=== PATIENT | female | born 1970 | race Caucasian/White ===

== ENCOUNTER → 2023-08-09 15:49 | Outpatient (REF) | payer OTHER, SELFPAY | LOC: RAD 15:49 | PROVIDERS: ATTENDING PHYSICIAN Surgery; FAMILY PHYSICIAN Internal Medicine | DX: N20.0 Calculus of kidney (principal) | CPT/HCPCS: 74176 ==

== ENCOUNTER → 2023-08-30 13:59 | Outpatient (REF) | payer OTHER, SELFPAY | LOC: RAD 13:59 | PROVIDERS: ATTENDING PHYSICIAN Internal Medicine | DX: J18.9 Pneumonia, unspecified organism (principal) | CPT/HCPCS: 71046 ==

== ENCOUNTER 2023-10-11 19:05 | Observation (INO) | payer OTHER, SELFPAY ==
[2023-09-27 08:10] VITALS: BMI 32.0
[2023-09-27 09:12] LABS: Urine Albumin Negative (Neg - Trace); Urine Bilirubin Negative (Negative); Urine Character Clear (Clear); Urine Color Yellow; Urine Glucose Negative (Negative); Urine Ketone Negative (Negative); Urine Leukocyte Trace (Negative); Urine Nitrite Negative (Negative); Urine Occult Blood Negative (Negative); Urine Urobilinogen Negative (Neg - 1+)
[2023-09-27 09:18] LABS: Hematocrit 37.8 % (37.0-47.0); Hemoglobin 12.5 g/dL (12.0-16.0); Mean Corp Hgb Conc. 33.1 g/dL (33.0-37.0); Mean Corpuscular Hgb 28.9 pg (27.0-31.0); Mean Corpuscular Volume 87.5 fL (81.0-99.0); Platelet Count 181 10^3/uL (130-400); Red Blood Cell Count 4.32 10^6/uL (4.20-5.40); Red Cell Dist. Width 14.4 % (11.5-14.5); White Blood Cell Count 5.2 10^3/uL (4.8-10.8)
[2023-09-27 09:29] LABS: Urine Mucus Few; Urine Squamous Cell >30 /LPF (Few)
[2023-09-27 09:30] LABS: Urine Red Blood Cell 0-2 /HPF (0-2)
[2023-09-27 09:31] LABS: Urine Bacteria Few (Negative)
[2023-09-27 09:37] LABS: Blood Urea Nitrogen 20 mg/dl (7-17); Calcium 9.4 mg/dl (8.4-10.2); Carbon Dioxide 22 mmol/L (22-30); Chloride 108 mmol/L (98-107); Estimated Creatinine Clearance 82 ml/min; Glucose 93 mg/dl (70-99); Potassium 4.4 mmol/L (3.5-5.1); Sodium 138 mmol/L (135-145); eGFR > 60.00
[2023-09-27 09:41] LABS: INR 1.03; PT 13.3 Sec (11.4-14.6)
[2023-10-11] VITALS (21 sets, daily range): BP systolic 94–144; BP diastolic 42–88; PULSE 80; BMI 32.0; BMI 31.1
[2023-10-11] MEDS: NORMOSOL-R 1000 IV (13:48)
[2023-10-11] MEDS: Pyridium 200 MG PO (16:07)
[2023-10-11] MEDS: DETROL LA 4 MG PO (16:07)
--- NOTE | 2023-10-11 17:51 | CON.CAR ---
Addendum entered and electronically signed by Scout Ortiz MD 10/11/23 18:53:
I saw and examined the patient.
The CHARGE HISTOTECHNOLOGIST's note was reviewed and I agree with the note.
53-year-old woman with a history of PSVT, hypertension and asthma who had a renal stone and underwent ureteroscopy with lithotripsy and stent. Consult for abnormal ECG. ST and T wave appeared abnormal on telemetry prompting the ECG which showed
anterior T wave inversions. Patient has some baseline nonspecific T wave abnormality however the most recent ECG has more pronounced T wave inversions. Patient currently is comfortable with no complaints of chest discomfort or shortness of breath.
No prior history of coronary artery disease and she has been asymptomatic at home and able to do usual physical activities without symptoms. Exact cause for ECG abnormalities unclear. Possibility of coronary ischemia is a consideration. Based on
the above I have recommended additional observation I reviewed this with both the patient, her mother, Dr. Taylor and anesthesia
-Monitor on telemetry
-Serial troponins
-Follow-up ECG in a.m.
Original Note:
Consultation
Consultation Request
Date/Time Consultation Requested: 10/11/231730
Date/Time Consultation Performed: 10/11/231739
Requesting Provider: Dr. Zhang
Performing Provider: Hina RODRIGUES for Dr. Ortiz
Reason for Consultation: abnormal EKG
Medical History
-
Chief Complaint: urologic procedure
History of Present Illness:
53 y/o female with YULI on CPAP, SVT on BB, HTN on ACEI, and asthma who recently diagnosed with renal stone and is s/p ureteroscopy with lithotripsy and stent. Tele showed so ST/T changes and so EKG was done and showed anterolateral t-wave inversions
. She feels 'perfect' and denies any CP or SOB. She walks for exercise and has no difficulty doing so.
Past Medical History
Past Medical History: Arrhythmias (SVT), Asthma, HTN and Other (YULI on CPAP)
Social History
Tobacco: Non-Smoker
Family History
Family History: Other (dad had stroke)
Allergies / Home Medications
Allergy/AdvReac Type Severity Reaction Status Date / Time
ketorolac tromethamine Allergy Anaphylaxis Verified 10/11/23 15:34
[From Toradol]
�Medication �Instructions �Recorded �Confirmed �Type
sertraline 100 mg tablet 200 mg PO HS 06/01/12 10/04/23 History
montelukast 10 mg tablet 10 mg PO HS 07/14/15 10/04/23 History
albuterol sulfate 90 mcg/actuation 1 puff inhalation PRN PRN WHEEZE 12/01/20 10/11/23 History
aerosol inhaler (Proventil HFA)
alendronate 70 mg tablet 70 mg PO HITCHCOCK 12/01/20 10/11/23 History
fluticasone propionate 115 1 puff inhalation BID 12/01/20 10/11/23 History
mcg-salmeterol 21 mcg/actuation
HFA inhaler (Advair HFA)
metoprolol succinate 25 mg 25 mg PO HS 12/01/20 10/04/23 History
tablet,extended release 24 hr
omeprazole 40 mg capsule,delayed 40 mg PO DAILY 12/01/20 10/11/23 History
release
acetaminophen 650 mg 650 mg PO Q8HPRN PRN pain 12/13/21 10/11/23 History
tablet,extended release (Tylenol
Arthritis Pain)
fexofenadine 30 mg tablet (Marita) 30 mg PO DAILY 12/13/21 10/11/23 History
gabapentin 300 mg capsule 600 mg PO HS 12/13/21 10/04/23 History
dynnqkjz-ybu-hahh 18 mg-FA 400 1 tab PO DAILY 12/13/21 10/11/23 History
mcg-calcium 500 mg-vit K 50 mcg
tablet (Women's Multivitamin)
gabapentin 300 mg capsule 300 mg PO DAILY 10/04/23 10/11/23 History
ibuprofen 600 mg tablet 600 mg PO Q6H 10/04/23 10/11/23 History
lisinopril 2.5 mg tablet 2.5 mg PO HS 10/04/23 10/04/23 History
Review of Systems
-
History Source: Patient
All other systems: Negative unless noted (no CP or SOB, feels well no symptoms)
Physical Exam
Vital Signs
Temp Pulse Resp BP Pulse Ox
97.6 F 90 20 130/77 96
10/11/23 15:26 10/11/23 17:45 10/11/23 17:45 10/11/23 17:45 10/11/23 17:45
Lab Results
09/27/23 08:07
09/27/23 08:07
Physical Exam
General: Well Developed, Well Nourished and No Apparent Distress
HEENT: Normocephalic and Anicteric
Respiratory: Clear and Non Labored Respirations
Cardiac: Regular Rhythm
GI: Soft, Non Distended and Normal Bowel Sounds
Musculoskeletal: No Edema
Skin: Warm and Dry
Neuro: AO x 3
Psych: Calm
Impression / Plan
-
Abnormal EKG:
-T-wave inversions anterolaterally
-denies any CP or SOB
-check trops
-follow telemetry
HTN:
-stable
-continue monitor
Sleep apnea:
-continue CPAP
SVT:
-on BB
-follow telemetry
Asthma:
-stable without SOB or wheezing
Renal stone s/p cystoscopy, lithotripsy, stent:
-per urology
Data Reviewed
-
EKG: Tracing Personally Visualized and interpreted (SR with T wave inversions anterolaterally)
Medical Tests (Nuc Med, Echo etc): Report Reviewed by me (echo 02/16/14: Mild concentric LVH with preserved systolic function, EF 55-60% 2. Mild-moderate tricuspid regurgitation with mild pulmonary hypertension, 40 mmHg)
Labs: Labs Reviewed by me
--- NOTE | 2023-10-11 18:49 | HPS.HSE ---
Family Physician
-
Family Physician: Yu Quinteros
Chief Complaint
-
abnormal telemtry
History of Present Illness
53-year-old female past medical history of obstructive sleep apnea, asthma, SVT, hypertension, renal stones who was diagnosed with renal stones and underwent uteroscopy with lithotripsy and stent today. Afterwards telemetry showed T wave inversions
in lateral leads so cardiology was consulted who recommended observation overnight. She states that she feels fine and denies any chest pain, shortness of breath or palpitations or dizziness. Her heart rate has been normal recently.
She denies smoking alcohol use.
Mother had heart disease. Her father had stroke.
Medical History
Past Medical History
Past Medical History: Reports Other (obstructive sleep apnea, asthma, SVT, hypertension, renal stones )
Past Surgical History: Reports None
Social History
Tobacco: Non-smoker
Alcohol: None
Drug: None
Family History
Family History: Not pertinent
Allergies / Home Medications
Allergies reflects when Allergies were last updated in [facility].
Home Medications with original date entered in [facility]
Allergy/Medication List:
Allergies
Allergy/AdvReac Type Severity Reaction Status Date / Time
ketorolac tromethamine Allergy Anaphylaxis Verified 10/11/23 15:34
[From Toradol]
Home Medications
sertraline 100 mg tablet 200 mg PO HS 06/01/12
montelukast 10 mg tablet 10 mg PO HS 07/14/15
albuterol sulfate 90 mcg/actuation aerosol inhaler (Proventil HFA) 1 puff inhalation PRN PRN WHEEZE 12/01/20
alendronate 70 mg tablet 70 mg PO HITCHCOCK 12/01/20
fluticasone propionate 115 mcg-salmeterol 21 mcg/actuation HFA inhaler (Advair HFA) 1 puff inhalation BID 12/01/20
metoprolol succinate 25 mg tablet,extended release 24 hr 25 mg PO HS 12/01/20
omeprazole 40 mg capsule,delayed release 40 mg PO DAILY 12/01/20
acetaminophen 650 mg tablet,extended release (Tylenol Arthritis Pain) 650 mg PO Q8HPRN PRN pain 12/13/21
fexofenadine 30 mg tablet (Marita) 30 mg PO DAILY 12/13/21
gabapentin 300 mg capsule 600 mg PO HS 12/13/21
qdqkxcak-efv-tmhe 18 mg-FA 400 mcg-calcium 500 mg-vit K 50 mcg tablet (Women's Multivitamin) 1 tab PO DAILY 12/13/21
gabapentin 300 mg capsule 300 mg PO DAILY 10/04/23
ibuprofen 600 mg tablet 600 mg PO Q6H 10/04/23
lisinopril 2.5 mg tablet 2.5 mg PO HS 10/04/23
Review of Systems
-
History Source: Patient
A 12 point ROS was completed and negative except as noted: Yes
Constitutional: Reports No Symptoms
EENT: Reports No Symptoms
Respiratory: Reports No Symptoms
Cardiac: Reports No Symptoms
Abdomen/GI: Reports No Symptoms
: Reports No Symptoms
Musculoskeletal: Reports No Symptoms
Skin: Reports No Symptoms
Neurological: Reports No Symptoms
Endocrine: Reports No Symptoms
Hematologic/Lymphatic: Reports No Symptoms
Psych: Reports No Symptoms
Physical Exam
Vital Signs
Vital Signs
Temp Pulse Resp BP Pulse Ox
98.8 F 100 18 134/69 95
10/11/23 18:30 10/11/23 18:45 10/11/23 18:45 10/11/23 18:30 10/11/23 18:45
Physical Exam
General: Well Developed, Well Nourished and No Apparent Distress
HEENT: NormoCephalic, Moist mucous membranes and Atraumatic
Respiratory: Clear
Cardiac: S1/S2 and Regular Rhythm; No Murmur or Rub
GI: Soft, Non Tender, Non Distended and Normal Bowel Sounds; No Organomegaly
Rectal: Deferred by Provider
Musculoskeletal: No Clubbing, No Cyanosis and No Edema
Skin: No Rash
Neuro: Nonfocal/grossly intact
Laboratory Results
-
09/27/23 08:07
09/27/23 08:07
Laboratory Results
PT 13.3 Sec (11.4-14.6) 09/27/23 08:07
INR 1.03 09/27/23 08:07
APTT 32.0 Sec (23.4-35.0) 09/27/23 08:07
Data Reviewed
-
Lab Data: Labs Reviewed by me
Old Records: Reviewed
Impression/Plan
-
IMPRESSION:
PLAN:
# Anterolateral T wave inversions
-Likely due to anesthesia/transient low blood pressure
-Observation overnight to rule out ischemia
-Check EKG in the morning
-Trend troponins
-Cardiology following
-Likely for discharge tomorrow
Renal stones status post uteroscopy with lithotripsy/stone extraction and stent placement today
History of SVT
-Continue metoprolol
Obstructive sleep apnea
Asthma
-Continue inhaler
-Continue montelukast
Essential hypertension
-Continue lisinopril
Spinal stenosis
-Continue ibuprofen, gabapentin
Osteoporosis
-Continue alendronate
Anxiety/depression
-Continue sertraline
Full code
DVT prophylaxis�heparin
Regular diet
[2023-10-11 19:17] LABS: Troponin I < 0.012 ng/ml
--- NOTE | 2023-10-11 19:50 | PTCARENOTE ---
Pt arrived to unit at this time form PACU, AAOx3 able to make needs known, VSS, denies pain able to transfer from stretcher to bed with standby assist. Pt oriented to room and [facility] policies call [facility]antes within reach. Pt reports she wears a CPAP @
[facility] will reach out to [facility] to have RT attain CPAP.
[2023-10-11] MEDS: ADVAIR HFA 115/21 MCG INHALER 1 PUFF INH (20:39)
[2023-10-11] MEDS: HEPARIN 5000 UNITS SC (21:16)
[2023-10-11] MEDS: ZOLOFT 200 MG PO (21:17)
[2023-10-11] MEDS: ZESTRIL 2.5 MG PO (21:17)
[2023-10-11] MEDS: NEURONTIN 600 MG PO (21:17)
[2023-10-11] MEDS: TOPROL XL 25 MG PO (21:18)
[2023-10-11] MEDS: SINGULAIR 10 MG PO (21:22)
[2023-10-12] MEDS: MOTRIN 600 MG PO ×3 (00:11→12:59)
[2023-10-12 00:34] LABS: Albumin 4.6 g/dl (3.5-5.0); Blood Urea Nitrogen 18 mg/dl (7-17); Calcium 9.4 mg/dl (8.4-10.2); Carbon Dioxide 21 mmol/L (22-30); Chloride 105 mmol/L (98-107); Estimated Creatinine Clearance 94 ml/min; Glucose 195 mg/dl (70-99); Magnesium 2.2 mg/dl (1.6-2.3); Phosphorus 3.1 mg/dl (2.5-4.5); Potassium 4.8 mmol/L (3.5-5.1); Sodium 137 mmol/L (135-145); eGFR > 60.00
[2023-10-12 00:45] LABS: Troponin I < 0.012 ng/ml
[2023-10-12] MEDS: ROXICODONE 5 MG PO (01:11)
--- NOTE | 2023-10-12 01:16 | PTCARENOTE ---
Pt reported that she was to be on a oral ABX after SDSand it was sent to her RX, reached out to quality control technician team for urology and reported they will address plan in the morning. Pt made aware.
[2023-10-12 03:15] VITALS: BP 111/51
[2023-10-12 06:05] LABS: % Basophils 0.3 % (0-2); % Immature Granulocytes 0.5 % (0-0.5); % Lymphocytes 6.5 % (20.5-51.1); % Monocytes 7.9 % (1.7-9.3); % Neutrophils 84.8 % (42.2-75.2); Absolute Immature Granulocytes 0.1 10^3/uL (0-0.05); Absolute Lymphocytes 0.9 10^3/uL (1.2-3.4); Absolute Monocytes 1.1 10^3/uL (0.1-0.6); Absolute Neutrophils 11.5 10^3/uL (1.4-6.5); Hematocrit 34.7 % (37.0-47.0); Hemoglobin 11.9 g/dL (12.0-16.0); Mean Corp Hgb Conc. 34.3 g/dL (33.0-37.0); Mean Corpuscular Hgb 29.1 pg (27.0-31.0); Mean Corpuscular Volume 84.8 fL (81.0-99.0); Mean Platelet Volume 8.7 fL (7.4-10.4); Nucleated Red Blood Cells % 0 %; Platelet Count 194 10^3/uL (130-400); Red Blood Cell Count 4.09 10^6/uL (4.20-5.40); White Blood Cell Count 13.6 10^3/uL (4.8-10.8)
[2023-10-12 06:28] LABS: Troponin I < 0.012 ng/ml
[2023-10-12 06:31] LABS: ALT (SGPT) 25 U/L (0-35); AST (SGOT) 26 U/L (14-36); Albumin 4.2 g/dl (3.5-5.0); Alkaline Phosphatase 56 U/L (38-126); Blood Urea Nitrogen 20 mg/dl (7-17); Calcium 9.1 mg/dl (8.4-10.2); Carbon Dioxide 22 mmol/L (22-30); Chloride 106 mmol/L (98-107); Estimated Creatinine Clearance 82 ml/min; Glucose 133 mg/dl (70-99); Potassium 4.3 mmol/L (3.5-5.1); Sodium 138 mmol/L (135-145); Total Bilirubin 0.7 mg/dl (0.2-1.3); Total Protein 6.8 g/dl (6.3-8.2); eGFR > 60.00
--- NOTE | 2023-10-12 07:01 | W.PN.HOSP.TC ---
Today's Communication/Plan
-
discharge
Assessment / Plan
Assessment / Plan
Physical Exam
General: Well Developed, Well Nourished and No Apparent Distress
HEENT: NormoCephalic, Moist mucous membranes and Atraumatic
Respiratory: Clear
Cardiac: S1/S2 and Regular Rhythm; No Murmur or Rub
GI: Soft, Non Tender, Non Distended and Normal Bowel Sounds; No Organomegaly
Musculoskeletal: No Clubbing, No Cyanosis and No Edema
Skin: No Rash
Neuro: Nonfocal/grossly intact
53F YULI Asthma SVT HTN renal stones uteroscopy w lithotripsy stent placed on observation overnight post-procedure d/t concern T wave inversions noted on telemonitor
# Anterolateral T wave inversions
-Likely due to anesthesia/transient low blood pressure
-EKG in AM noted NSR no significant change from prior EKG
-Troponin neg x3
-ECHO appreciated preserved EF 60-65%
-Cardiology eval appreciated outpt follow up for stress test recommended, cleared for discharge
Renal stones status post uteroscopy with lithotripsy/stone extraction and stent placement 10/10
urology eval appreciated, outpatient follow up recommended.
History of SVT
-Continue metoprolol
Obstructive sleep apnea
Asthma
-Continue inhaler
-Continue montelukast
Essential hypertension
-Continue lisinopril
Spinal stenosis
-Continue ibuprofen, gabapentin
Osteoporosis
-Continue alendronate
Anxiety/depression
-Continue sertraline
Full code
DVT prophylaxis�heparin
Regular diet
Total Time Preparing Discharge __45 minutes including examination of the patient, summary of the hospital stay, instructions for continuing care to all relevant caregivers; and preparation of discharge records, prescriptions, and referral
forms if necessary.
Anticipated Discharge: Today
Subjective/Interval History
-
Date of Service: October 12, 2023
Reports feeling well. No new acute issues. Eager to go home
Objective Data
-
Labs:
Laboratory Results
10/12/23 10/12/23
00:05 05:55
WBC 13.6 H
Hgb 11.9 L
Hct 34.7 L
Plt Count 194
Sodium 137 138
Potassium 4.8 4.3
Chloride 105 106
Carbon Dioxide 21 L 22
BUN 18 H 20 H
Creatinine 0.7 0.8
Glucose 195 H 133 H
Calcium 9.4 9.1
Total Bilirubin 0.7
AST 26
ALT 25
Alkaline Phosphatase 56
Vital Signs:
Vital Signs
Temp Pulse Resp BP Pulse Ox
99 F 87 18 111/51 95
10/12/23 03:15 10/12/23 03:15 10/12/23 03:15 10/12/23 03:15 10/12/23 03:15
I&O
10/11/23 10/12/23 10/13/23
06:59 06:59 06:59
Intake Total 1520 / 1520
Balance 1520 / 1520
[2023-10-12 07:20] VITALS: BP 105/79
--- NOTE | 2023-10-12 08:14 | W.PN.URO.CBU ---
Today's Communication / Plan
-
discharge when cleared by cardiology
Assessment / Plan
-
s/p ureteroscopy
admitted for post op ekg changes
pt feels good
cleared from gu standpoint for discharge
gu meds already sent to pharmacy
pt to contact office after discharge for plan
Diagnosis
-
Date of Service: October 12, 2023
-
Patient Diagnosis:
stone
post op ekg change
Post Op Day:
1 right ureteroscopy
Subjective
-
pt feels good- no Cp or sig stent discomfort
no fevers
slight elevation of wbc- likely reactionary from surgery
Objective
-
Vital Signs
Temp Pulse Resp BP Pulse Ox
99 F 87 18 111/51 95
10/12/23 03:15 10/12/23 03:15 10/12/23 03:15 10/12/23 03:15 10/12/23 03:15
Intake and Output
10/11/23 10/12/23 10/13/23
06:59 06:59 06:59
Intake Total 1520 / 1520
Balance 1520 / 1520
Intake:
Oral fluids 920 / 920
IV fluids (Total) 600 / 600
Normosol 600 / 600
Other:
Number of approximated MODERATE 3
amounts of urine
Laboratory Results
10/12/23 05:55
10/12/23 05:55
Review of Systems
-
Constitutional: No Symptoms
Respiratory: No Symptoms
Cardiac: No Symptoms
Abdomen/GI: No Symptoms
Physical Exam
-
General - no acute distress
[2023-10-12] MEDS: ADVAIR HFA 115/21 MCG INHALER 1 PUFF INH (08:56)
[2023-10-12] MEDS: HEPARIN 5000 UNITS SC (08:56)
[2023-10-12] MEDS: THERAGRAN 1 TABLET PO (08:57)
[2023-10-12] MEDS: PROTONIX 40 MG PO (08:57)
[2023-10-12] MEDS: CLARITIN 10 MG PO (08:57)
[2023-10-12] MEDS: NEURONTIN 300 MG PO (09:06)
[2023-10-12] MEDS: KEFLEX 500 MG PO (09:08)
--- NOTE | 2023-10-12 10:31 | W.PN.CD ---
Today's Communication / Plan
-
stable overnight
negative toponins and normal LVF by echo'
no evidence changes are due to ischmeia
will follow up as outpatietn and will arrange outpateitn stress test after additional recovery
ok for discharge from cardiology standpoint.
Impression / Plan
-
Abnormal EKG:
-T-wave inversions anterolaterally
-denies any CP or SOB
-Nonspecific changes.
- negative troponins. No evidence ECG related to ischemi
echo with normal lVF
Mildly elevated trnnsaortic gradient without clear aortic stenosis. Increased gradient may be impacted by mild LVOT and intracavitary gradient
HTN:
-stable
-continue monitor
Sleep apnea:
-continue CPAP
SVT:
-on BB
-follow telemetry
Asthma:
-stable without SOB or wheezing
Renal stone s/p cystoscopy, lithotripsy, stent:
-per urology
Physical Exam
Vital Signs/Labs
Vital Signs
Temp Pulse Resp BP Pulse Ox
99.0 F 78 16 105/79 96
10/12/23 07:20 10/12/23 08:58 10/12/23 08:58 10/12/23 07:20 10/12/23 08:58
10/11/23 10/12/23 10/13/23
06:59 06:59 06:59
Actual Weight 82.1 kg
10/12/23 05:55
10/12/23 05:55
PT 13.3 Sec (11.4-14.6) 09/27/23 08:07
INR 1.03 09/27/23 08:07
APTT 32.0 Sec (23.4-35.0) 09/27/23 08:07
Magnesium 2.2 mg/dl (1.6-2.3) 10/12/23 00:05
LAB Results
10/11/23 10/12/23 10/12/23
18:35 00:05 05:55
Troponin I < 0.012 < 0.012 < 0.012
Physical Exam
Constitutional: No acute distress
Cardiovascular: Rhythm & rate is regular and Other (faint systlic murmur)
Respiratory: Respiratory effort normal
GI: Soft
Neuro/Psych: Alert
Data Reviewed
-
Date of Service: October 12, 2023
Medical Decision Making: Reviewed Test Results
Echo: Tracing Personally Visualized and interpreted and Report Reviewed by me
X-Ray/CT/US/MRI/NUC/PET: Report Reviewed by me
Medical Tests (PFT, Pathology etc): Report Reviewed by me
Labs: Labs Reviewed by me
[2023-10-12 11:50] VITALS: BP 97/57
--- NOTE | 2023-10-12 12:41 | W.DCSUMMARY ---
Discharge Summary
Discharge Data
Date of Admission: 10/11/23
Date of Discharge: 10/12/23
-
Pending Results: No
Hospital Course
53F YULI Asthma SVT HTN renal stones uteroscopy w lithotripsy stent placed on observation overnight post-procedure d/t concern T wave inversions noted on telemonitor. Anterolateral T wave inversions, likely due to anesthesia/transient low blood
pressure, EKG in AM noted NSR no significant change from prior EKG. Troponin neg x3. ECHO appreciated preserved EF 60-65%. Cardiology evaluated and outpt follow up for stress test recommended, cleared for discharge. Renal stones status post
uteroscopy with lithotripsy/stone extraction and stent placement 10/10. Urology evaluated and recommended outpatient follow up. Medically stable, patient was discharged home with outpatient follow up recommendations.
Discharge Plan
-
Patient Disposition: Home (Routine Discharge)
Discharge Diagnosis/Procedures: you had a right ureteroscopy and laser lithotripsy, abnormal EKG
Condition: Good
Diet: No restrictions
Activity: No restrictions
Driving Restrictions: As prior to admission
Bathing Restrictions: OK to Shower
Wound Care: expect blood in urine, urinary urgency and frequency and some pain with urination
Referrals:
Yu Quinteros PA-C [Family Provider] - in one week
Elías Taylor MD [Active] - (call dr taylor's office to schedule follow up/stent removal)
Hina Karimi CRNP [Specified Professional Personl] - 10/25/23 10:40 am
Additional Discharge Medication Instructions: take the pyridium and cephalexin as prescribed by dr taylor- these have been called into your pharmacy
Prescriptions:
Continued
sertraline 100 MG tablet
200 mg PO HS
montelukast 10 MG tablet
10 mg PO HS
alendronate 70 MG tablet
70 mg PO HITCHCOCK
omeprazole 40 MG capsule,delayed release(/EC)
40 mg PO DAILY
metoprolol succinate 25 MG tablet extended release 24 hr
25 mg PO HS
albuterol sulfate [Proventil HFA] 90 MCG/PUFF HFA aerosol inhaler
1 puff inhalation PRN PRN (Reason: WHEEZE)
fluticasone propion-salmeterol [Advair HFA] 1 PUFF HFA aerosol inhaler
1 puff inhalation BID
acetaminophen [Tylenol Arthritis Pain] 650 MG tablet extended release
650 mg PO Q8HPRN PRN (Reason: pain)
Marita 30 MG tablet
30 mg PO DAILY
Women's Multivitamin 1 EACH tablet
1 tab PO DAILY
gabapentin 300 MG capsule
600 mg PO HS
ibuprofen 600 mg Tablet
600 mg PO Q6H
gabapentin 300 mg Capsule
300 mg PO DAILY
lisinopril 2.5 mg Tablet
2.5 mg PO HS
Discharge Orders:
Discharge Patient (As Directed); Ordered 10/12/23
Ordered By: Vero Adorno
Discharge Date and Time
Discharge Date/Time: 10/12/23 13:13
Print Language: [place]
--- NOTE | 2023-10-12 15:20 | CM ---
Pt left prior to CM speaking with her.
Staff said family picked her up .
Hx of sleep apnea Has CPAP at home and cervical collar.
Observation letter unable to be given
PLAN Home no needs
== END 2023-10-12 13:13 | disposition home or self-care (01) ==
LOC: 2 SOUTH 19:05
PROVIDERS: Nurse Practitioner; Surgery; ADMITTING PHYSICIAN Hospitalist; ATTENDING PHYSICIAN Internal Medicine; FAMILY PHYSICIAN Physician Assistant; OTHER PHYSICIAN Internal Medicine Cardiovascular Disease
DX: N20.0 Calculus of kidney (principal); I10 Essential (primary) hypertension; I47.10 Supraventricular tachycardia, unspecified; J45.909 Unspecified asthma, uncomplicated; F41.9 Anxiety disorder, unspecified; F32.A Depression, unspecified; M81.0 Age-related osteoporosis without current pathological fracture; G47.33 Obstructive sleep apnea (adult) (pediatric); I07.1 Rheumatic tricuspid insufficiency; I27.20 Pulmonary hypertension, unspecified; Z82.3 Family history of stroke; Z87.442 Personal history of urinary calculi; Z82.49 Family history of ischemic heart disease and other diseases of the circulatory system; Z88.8 Allergy status to other drugs, medicaments and biological substances; Z79.51 Long term (current) use of inhaled steroids; Z86.79 Personal history of other diseases of the circulatory system
CPT/HCPCS: 52356; 36415; 74018; 76000; 80048; 80053; 80069; 81003; 81015; 83735; 84484; 85025; 85027; 85610; 85730; 87070; 93005; 93306; 94640; 94660; C1769; C1894; C2617; G0378

== ENCOUNTER → 2023-11-05 11:12 | Outpatient (REF) | payer OTHER, SELFPAY | LOC: DHCBC/DCA 11:12 | PROVIDERS: ATTENDING PHYSICIAN Nurse Practitioner; FAMILY PHYSICIAN Physician Assistant | DX: R94.31 Abnormal electrocardiogram [ECG] [EKG] (principal) | CPT/HCPCS: 78452; 93017; A9500; J2785 ==

== ENCOUNTER 2023-12-20 06:08 | Day surgery (SDC) | payer OTHER, SELFPAY ==
--- NOTE | 2023-12-16 16:36 | PTCARENOTE ---
Abnormal ECG reported to Dr. Zhang, no further actions requested at this time.
[2023-12-20] VITALS (10 sets, daily range): BP systolic 88–136; BP diastolic 46–88; BMI 30.3
[2023-12-20] MEDS: TYLENOL 1000 MG PO (14:34)
[2023-12-20] MEDS: VALIUM INJECTION 2 MG IV (16:39)
[2023-12-20] MEDS: DETROL LA 4 MG PO (16:51)
[2023-12-20] MEDS: Pyridium 200 MG PO (16:51)
== END 2023-12-20 17:40 | disposition home or self-care (01) ==
LOC: SDS 06:08
PROVIDERS: ATTENDING PHYSICIAN Surgery
DX: N20.0 Calculus of kidney (principal)
CPT/HCPCS: 52356; 74420; 76000; C1769; C1894; C2617

== ENCOUNTER → 2024-02-06 17:21 | Outpatient (REF) | payer OTHER, SELFPAY | LOC: WDC 17:21 | PROVIDERS: ATTENDING PHYSICIAN Physician Assistant | DX: Z12.31 Encounter for screening mammogram for malignant neoplasm of breast (principal); Z00.00 Encounter for general adult medical examination without abnormal findings | CPT/HCPCS: 77063; 77067 ==

== ENCOUNTER → 2024-03-06 14:19 | Outpatient (REF) | payer OTHER, SELFPAY | LOC: RAD 14:19 | PROVIDERS: ATTENDING PHYSICIAN Surgery | DX: N20.0 Calculus of kidney (principal) | CPT/HCPCS: 76775 ==

== ENCOUNTER → 2024-07-31 13:38 | Outpatient (REF) | payer OTHER, SELFPAY | LOC: RAD 13:38 | PROVIDERS: ATTENDING PHYSICIAN Surgery; FAMILY PHYSICIAN Physician Assistant | DX: N20.0 Calculus of kidney (principal) | CPT/HCPCS: 76775 ==

== ENCOUNTER → 2025-05-21 14:08 | Outpatient (REF) | payer OTHER, SELFPAY | LOC: WDC 14:08 | PROVIDERS: ATTENDING PHYSICIAN Physician Assistant | DX: Z12.31 Encounter for screening mammogram for malignant neoplasm of breast (principal) | CPT/HCPCS: 77063; 77067 ==